=== PATIENT | male | born 1960 | race Asian ===

== ENCOUNTER 2019-01-18 22:06 | Emergency (ER) | payer OTHER ==
[~2019-01-18] VITALS: Ht 177.8 cm; Wt 78.0 kg
[2019-01-18 22:22] VITALS: Ht 177.8 cm; Wt 78.0 kg
[2019-01-19 05:02] VITALS: BP 100/65
== END 2019-01-19 04:42 | disposition home or self-care (01) ==
LOC: ED 22:06
DX: S82.892A Other fracture of left lower leg, initial encounter for closed fracture (principal); S91.011A Laceration without foreign body, right ankle, initial encounter; R10.32 Left lower quadrant pain; Z90.49 Acquired absence of other specified parts of digestive tract; W11.XXXA Fall on and from ladder, initial encounter; Y93.89 Activity, other specified; Y92.89 Other specified places as the place of occurrence of the external cause; Y99.8 Other external cause status
CPT/HCPCS: J1885; Q0092

== ENCOUNTER 2019-01-31 22:08 | Emergency (ER) | payer OTHER ==
[~2019-01-31] VITALS: Ht 177.8 cm; Wt 75.7 kg
[2019-01-31 22:19] VITALS: Ht 177.8 cm; Wt 75.7 kg
[2019-02-01 00:45] VITALS: BP 122/69
== END 2019-02-01 00:45 | disposition home or self-care (01) ==
LOC: ED 22:08
DX: S93.402A Sprain of unspecified ligament of left ankle, initial encounter (principal); X58.XXXD Exposure to other specified factors, subsequent encounter; Z98.890 Other specified postprocedural states